=== PATIENT | male | born 1955 | race Asian ===

== ENCOUNTER 2018-02-14 02:36 | Inpatient (IN) | payer SELFPAY ==
[2018-02-14] MEDS ORDERED: Metoprolol tartrate 1 mg/ml 5mL Amp IV STA ×3 (02:45→03:19)
[2018-02-14] MEDS ORDERED: Metoprolol tartrate 1 mg/ml 5mL Amp IV ONE ×2 (02:46→03:24)
[2018-02-14] MEDS ORDERED: Lactated Ringer 1,000 ML IV ONE ×3 (02:53→05:39)
--- NOTE | 2018-02-14 03:03 | ED Physician Chart ---
ED Chief Complaint/HPI - Patient Information Date Seen:: 02/14/18 Time Seen:: 02:36 Chief Complaint:: palpitations and sob History of Present Illness:: palpitations and sob in a man with a h/o atrial fibrillation who was on atenolol in the past. Allergies:: Allergies Allergy/AdvReac Type Severity Reaction Status Date / Time UNOBTN - Unobtainable Allergy Verified 02/14/18 02:46 Vitals:: Vital Signs - 8 hr 02/14/18 02/14/18 02:36 02:49 Temp 99.2 F HR 139 124 RR 20 BP 173/119 173/119 O2 Sat % 97 Historian:: Patient, EMS, Medical Records, Other (police) Review:: Transfer documents Reviewed ED Review of Systems - Review of Systems General/Constitutional: No fever, No chills, No weight loss, No weakness, No diaphoresis, No edema, No loss of appetite, Other (alcohol on breath.) Skin: No skin lesions, No rash, No bruising Head: No headache, No light-headedness Eyes: No loss of vision, No pain, No diplopia ENT: No earache, No nasal drainage, No sore throat, No tinnitus Neck: No neck pain, No swelling, No thyromegaly, No stiffness, No mass noted Cardio Vascular: Palpitations Pulmonary: SOB GI: No nausea, No vomiting, No diarrhea, No pain, No melena, No hematochezia, No constipation, No hematemesis G/U: No dysuria, No frequency, No hematuria Musculoskeletal: No bone or joint pain, No back pain, No muscle pain Endocrine: No polyuria, No polydipsia Psychiatric: No prior psych history, No depression, No anxiety, No suicidal ideation Hematopoietic: No bruising, No lymphadenopathy Allergic/Immuno: No urticaria, No angioedema Neurological: No syncope, No focal symptoms, No weakness, No paresthesia, No headache, No seizure, No dizziness, No confusion, No vertigo ED Past Medical History - Past Medical History Obtainable: Yes Past Medical History: Other (atrial fibrillation) Family Medical History - Family Member Mother History Unknown: Yes ED Physical Exam - Physical Examination General/Constitutional: Awake Other Gen/Cons comments:: alcohol on breath. Head: Atraumatic Eyes: Lids, conjuctiva normal Skin: Nl inspection ENMT: External ears, nose nl Neck: Nontender Respiratory: Nl effort/Exclusion, Clear to Auscultation, No Wheeze/Rhonchi/Rales Other Cardio Vascular comments:: irregularly irregular GI: No tenderness/rebounding/guarding Other GI comments:: distended. Extremities: No tenderness or effusion, No edema Neuro/Psych: Alert/oriented Other Neuro/Psych comments:: smell of alcohol on breath. Misc: Normal back ED Assessment - Assessment General Assessment: EKG from 2:41:58 a.m. reveals atrial fibrillation with nonspecific ST T wave changes. Flipped t wave in III and V1. patient is intoxicated and became agitated when asked about alcohol and stated that he was not intoxicated. subsequent to this, one of the nurses started asking him how many drinks he had, I asked this nurse to stop asking him these questions since we wanted him to relax while he was being treated for rapid atrial fibrillation. while patient was being treated for rapid atrial fibrillation, one of the nurses tried to swab his nose for MRSA. I asked the nurse to hold off since this would stimulate the patient. while patient was being treated for rapid atrial fibrillation, one of the technicians tried to draw his blood. I asked her to hold off since this would stimulate the patient. Airline Attendant Dontrell brought $ 485.26 in [place] to the patient. We received it from him since the patient was being treated for rapid atrial fibrillation. Assessment/Comments:: after total of Metoprolol 10 mg IV, heart rate still elevated at 120. Cardizem brought his heart rate down to the 80's. repeat EKG from 5:28:12 a.m.: atrial fibrillation with rate of 87. Leads II, III and V1 appear to look like atrial flutter with shark tooth pattern. Flipped t wave in III, AVR, V1 to V3. Waiting for hemoccult to return on stool. Smells like melena. phone call to Dr. Charles at 5:40 a.m. and went straight to voice mail. phone calls to Dr. Charles at 6:00 a.m. and 6:30 a.m. Went straight to voice mail both times. my reading of CXR reveals NAD. paged Dr. Diaz at 7:08 a.m. No answer as of 7:30 a.m. gave sign out to Dr. Wu at 7 a.m. ED Septic Shock - . Is Septic Shock (SBP<90, OR Lactate>4 mmol\L) present?: No - <6hrs of presentation: Vital Signs: Vital Signs - 8 hr 02/14/18 02/14/18 02:36 02:49 Temp 99.2 F HR 139 124 RR 20 BP 173/119 173/119 O2 Sat % 97 ED Reassessment (Disposition) - Reassessment Reassessment Condition:: Improved - Diagnosis Diagnosis:: Rapid atrial fibrillation. Alcohol intoxication. - Patient Disposition Discharge/Transfer:: Acute Care w/in this hosp Admitted to:: Telemetry Condition at Disposition:: Stable, Improved
[2018-02-14 04:02] LABS: AMPHETAMINE URINE NEGATIVE (NEGATIVE); BARBITURATES URINE NEGATIVE (NEGATIVE); BENZODIAZEPINES QUAL URINE NEGATIVE (NEGATIVE); CANNABINOID THC NEGATIVE (NEGATIVE); COCAINE METABOLITE QUAL URINE NEGATIVE (NEGATIVE); METHADONE URINE NEGATIVE (NEGATIVE); METHAMPHETAMINES QUAL URINE NEGATIVE (NEGATIVE); OPIATES (MORPHINE) QUAL. URINE NEGATIVE (NEGATIVE); PHENCYCLIDINE (PCP) URINE NEGATIVE (NEGATIVE); TRICYCLICS (TCA) QUAL. URINE NEGATIVE (NEGATIVE)
[2018-02-14 04:06] LABS: % BASOPHILS 0.3 % (0.0-2.0); % EOSINOPHILS 0.8 % (0.0-5.0); % LYMPHOCYTES 16.1 % (20.0-50.0); % MONOCYTES 5.8 % (2.0-10.0); EOSINOPHILE ABSOLUTE 0.1 Th/cmm (0.1-0.4); HEMATOCRIT 43.6 % (41.0-60); HEMOGLOBIN 14.7 gm/dL (12-16); LYMPHOCYTE ABSOLUTE 1.3 Th/cmm (1.5-3.0); MEAN CELL VOLUME 93.7 fl (80-99); MEAN CORPUSCULAR HEMOGLOBIN 31.6 pg (26.0-30.0); MEAN CORPUSCULAR HGB CONC 33.7 pg (28.0-36.0); MEAN PLATELET VOLUME 8.4 fl; MONOCYTE ABSOLUTE 0.5 Th/cmm (0.3-1.0); NEUTROPHILE ABSOLUTE 6.3 Th/cmm (1.8-8.0); PLATELET COUNT 212 Th/cmm (150-400); RED BLOOD COUNT 4.65 Mil/cmm (4.30-5.70); RED CELL DISTRIBUTION WIDTH 12.1 % (11.5-20.0); WHITE BLOOD COUNT 8.2 Th/cmm (4.8-10.8)
[2018-02-14 04:14] LABS: INR 0.93 (0.5-1.4); PROTHROMBIN TIME (TEST) 9.7 SECONDS (9.5-11.5)
[2018-02-14 04:19] LABS: ALB/GLOB RATIO 1.4 (1.0-1.8); ALBUMIN 3.8 gm/dL (4.2-5.5); ALKALINE PHOSPHATASE 52 U/L (34-104); ANION GAP 15.5 (7.0-16.0); BILIRUBIN,TOTAL 0.2 mg/dL (0.3-1.0); BUN - UREA NITROGEN 19 mg/dL (7-25); CALCIUM SERUM 8.7 mg/dL (8.6-10.3); CARBON DIOXIDE 18.1 mEq/L (21.0-31.0); CHLORIDE 107 mEq/L (98-107); CREATININE - SERUM 0.8 mg/dL (0.7-1.3); GFR AFRICAN-AMERICAN > 60.0 ml/min (>90); GFR NON AFRICAN-AMERICAN > 60.0 ml/min; GLUCOSE 133 mg/dL (70-105); MAGNESIUM 1.8 mg/dL (1.9-2.7); PHOSPHOROUS 2.4 mg/dL (2.5-5.0); POTASSIUM SERUM 3.6 mEq/L (3.5-5.1); SGOT 58 U/L (13-39); SGPT/ALT 69 U/L (7-52); SODIUM SERUM 137 mEq/L (136-145); TOTAL PROTEIN,SERUM 6.5 gm/dL (6.0-8.3)
[2018-02-14] MEDS ORDERED: Diltiazem 5 mg/mL 5mL Vial IVP STA ×2 (04:33→09:14)
[2018-02-14] MEDS ORDERED: Diltiazem 5 mg/mL 5mL Vial IVP ONE ×2 (04:38→09:17)
[2018-02-14] MEDS ORDERED: Sodium Phos / Potassium Phos 1.25 GM PACK PO ONE (05:12)
[2018-02-14] MEDS ORDERED: Maalox 30 mL Cup PO ONE (05:17)
[2018-02-14] MEDS ORDERED: Maalox 30 mL Cup ONE (05:29)
--- NOTE | 2018-02-14 09:17 | Diagnostic Imaging Report ---
Portable chest x-ray Time: 0 423 History: Shortness of breath Allowing for portable technique the heart size is normal. No focal pulmonary parenchymal processes. No hilar or mediastinal abnormalities. Impression: No acute abnormalities.
[2018-02-14] MEDS ORDERED: Sodium Chloride 0.9% 1,000 ML IV SCH (12:00)
[2018-02-14 12:11] LABS: CHOLESTEROL 165 mg/dL (<200); HDL -HIGH DENSITY LIPOPROTEIN 44 mg/dL (23-92); TRIGLYCERIDES 132 mg/dL (<150)
[2018-02-14 12:14] LABS: BUN - UREA NITROGEN 13 mg/dL (7-25); CALCIUM SERUM 9.3 mg/dL (8.6-10.3); CARBON DIOXIDE 23.6 mEq/L (21.0-31.0); CHLORIDE 102 mEq/L (98-107); CREATININE - SERUM 0.8 mg/dL (0.7-1.3); GFR AFRICAN-AMERICAN > 60.0 ml/min (>90); GFR NON AFRICAN-AMERICAN > 60.0 ml/min; GLUCOSE 119 mg/dL (70-105); POTASSIUM SERUM 3.6 mEq/L (3.5-5.1); SODIUM SERUM 134 mEq/L (136-145)
[2018-02-14] MEDS ORDERED: Pneumococcal Vaccine 0.5 mL Vial IM ONE (12:15)
--- NOTE | 2018-02-14 12:28 | History & Physical Pre-OP ---
DATE OF SERVICE: 02/14/2018 CHIEF COMPLAINT: Palpitations. HISTORY OF PRESENT ILLNESS: This is a 62-year-old Spanish gentleman with history of atrial fib and hypertension, who was brought in to the ED secondary to palpitations. The patient was apparently drinking and was [facility] in [facility] he was taken after he was arrested for DUI. He started complaining of palpitations soon after. At the ED, his EKG was consistent with afib with a rate of 136. The patient takes atenolol, but states that despite taking this medication, his blood pressure is usually on the high side and occasionally he gets palpitations. 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 PAST MEDICAL HISTORY: As noted above. Afib for many years. essential hypertension since early adulthood. PAST SURGICAL HISTORY: Denies. FAMILY HISTORY: His father secondary to a stroke in his late 80s. SOCIAL HISTORY: He admits to daily drinking for years. He denies smoking. He denies any other substance abuse, which is IVDA. He works as a airplane engineer. ALLERGIES: ALLERGIC TO PENICILLIN. OUTPATIENT MEDICATIONS: Atenolol, unknown dosage. REVIEW OF SYSTEMS: CONSTITUTIONAL: No fever or chills. No recent weight loss. CARDIOVASCULAR: Please refer to the HPI. He denies any chest pain or angina. PULMONARY: No cough or phlegm production. GASTROINTESTINAL: No bowel habit changes. GENITOURINARY: No bladder habit changes. NEUROLOGIC: No changes in vision. No headaches. Denies any syncope. PSYCH: She does admit to anxiety and occasional depression. PHYSICAL EXAMINATION: VITAL SIGNS: Temperature 98.9, pulse 112-116, BP 150/111 with respirations of 17 and sats of 96% on room air. GENERAL: He is a well-developed, well-nourished male, currently awake, alert and oriented x 3, in no acute distress. HEAD AND NECK: Normocephalic, atraumatic. Pupils reactive to light. Extraocular movements are intact. Oropharynx moist and clear. CARDIAC: Regular rate, regular rhythm with no murmurs. LUNGS: Clear to auscultation bilaterally. ABDOMEN: Soft, supple, nontender, nondistended, normoactive bowel sounds. EXTREMITIES: Lower extremities: Has no pedal edema. NEUROLOGIC: Grossly intact and nonfocal. LABORATORY DATA: CBC was essentially within normal limits. Chemistry was within normal limits with glucose of 133, mag 1.8, AST 58, ALT 69, alkaline phosphatase of 52. Troponins are negative x 1 set. A urine tox was negative. Alcohol level was 94. DIAGNOSTICS: Please refer to the HPI. Repeat EKG shows atrial fib at a rate of 120. Chest x-ray shows no abnormalities. IMPRESSION: 1. Atrial fibrillation with rapid ventricular response. 2. History of atrial fibrillation. 3. Essential hypertension, currently controlled. 4. Chronic ETOH. 5. Mild transaminitis. 6. Chronic anxiety/depression. PLAN: The patient has been admitted to tele for further management and care. The patient has been given diltiazem at the ED and I will continue patient on atenolol 50 mg b.i.d. He will undergo cardiac testing including troponins/EKGs as well as a 2D echo. Cardiology will also be asked for. The patient is agreeable to be started on an antidepressant and I will put him on Ativan as needed for anxiety. JOB# [id number] JUWAN
[2018-02-14] MEDS ORDERED: Mag Sulfate 2gm/50mL Premix 2 GM/50 ML BAG IV ONE (15:10)
[2018-02-14] MEDS ORDERED: Enoxaparin Subq per Pharmacy MC SCH (15:30)
[2018-02-14] MEDS ORDERED: Enoxaparin 40 mg/0.4 mL 0.4mL Syr SUBQ SCH (16:00)
[2018-02-14 20:22] LABS: INR 0.94 (0.5-1.4); PROTHROMBIN TIME (TEST) 9.8 SECONDS (9.5-11.5)
[2018-02-14] MEDS ORDERED: KCL 20mEq/100mL Premix 20 MEQ/100 ML PIGGYBACK IV ONE (23:30)
--- NOTE | 2018-02-14 23:32 | Consultation ---
DATE OF CONSULTATION: 02/14/2018 HISTORY OF PRESENT ILLNESS: The patient was seen in the courtesy of Dr. Charles. This 62-year-old male was seen and examined. The patient was admitted here through Emergency Room with history of palpitations and found to be in atrial fibrillation with a fast ventricular response. The patient has history of hypertension, history of hyperlipidemia, and he also found to be intoxicated with alcohol. He says he drinks every day. On questioning him, the patient denied any history of chest pains. No history of shortness of breath, no history of PND, no history of orthopnea, no history of cough, no history of fever, no history of hemoptysis, no history of dizziness, no history of syncope, no history of seizures, no history of CVA, no history of abdominal pain, no history of nausea or vomiting, no history of hematemesis, no history of melena, no history of bleeding per rectum. No history of change in bowel habits. No history of swelling over the legs. On questioning him, he says the patient does have history of this irregular heartbeat and atrial fib for 10-12 years. He is an attorney lawyer by profession. PAST MEDICAL HISTORY: Usual childhood disease. No history of rheumatic fever. No history of scarlet fever. Other past history as mentioned above. FAMILY HISTORY: Not significant. SOCIAL HISTORY: The patient does not smoke. Chronic alcohol drinker. REVIEW OF SYSTEMS: As mentioned above. PHYSICAL EXAMINATION: VITAL SIGNS: Heart rate was 100-115, blood pressure was 167/100 and then came down to 143/104, afebrile, respirations was 18. SKIN: Normal. HEAD: Normocephalic. EYES: Conjunctivae were pink. There is no icterus in the eyes. Pupils reactive to light. NECK: There was no increased jugular venous distention, no thyromegaly, no lymphadenopathy. Carotids equal on both sides. CHEST: Bilaterally symmetrical, moved well with respiration. Respiratory movements equal on both sides. Trachea is central. There is note to percussion. Breath sound, no rales, no rhonchi. CARDIOVASCULAR SYSTEM: PMI not well localized. There is no positional thrill. No parasternal heave. S1 normal, S2 physiologic. There were no S3, no rub. ABDOMEN: Soft. No tenderness, no rigidity, no guarding, and no organomegaly. Bowel sounds normal. CENTRAL NERVOUS SYSTEM: Appears to be unremarkable. EXTREMITIES: No edema, no calf tenderness. Peripheral pulses slightly diminished. LABORATORY DATA: On reviewing the lab: WBC count was 8.2, hemoglobin 14.7, hematocrit 43.6, platelet count was 212. INR was 0.93, PTT was 27.5. Sodium was 134, potassium 3.6, chloride 102, carbon dioxide of 23.6, BUN 13, creatinine 0.8, GFR more than 60, glucose was 119, calcium 9.3. Troponin levels within normal limits 0.01 and 0.02. Triglycerides 132, cholesterol 165, LDL was elevated to 112, HDL 44, TSH 0.52, SGOT was 58, SGPT 69, magnesium was 1.8, alcohol level was 94. Drug screen urine was negative. EKG showed atrial fibrillation with fast ventricular response, normal axis. IMPRESSION: Atrial fibrillation with fast ventricular response, chronic atrial fibrillation, troponins are normal, hypertension uncontrolled, hyperlipidemia and increased LDL, hypomagnesemia. PLAN: Plan is to continue cardiac monitoring. The Cardizem is already ordered p.r.n. to control the heart rate. We will also give Lanoxin 0.25 mg IV. The patient is on atenolol 50 mg b.i.d. We will ask the pharmacy to give Lovenox for AFib. Since he is a chronic alcoholic, we have to watch for DTs. We will start him on some IV fluids with MVI. Also given thiamine 100 mg 3 times a day. Also put him on Librium 25 mg q. 6 hours and also add Lipitor 20 mg p.o. daily. Further recommendation will be made depending on the rest of the tests available. Also get echocardiogram to evaluate left ventricular function and valvular structure. Repeat EKG and BMP in a.m. JOB# [id number]
[2018-02-15] MEDS ORDERED: Multivitamin Inj 10 mL Vial IV ONE (00:37)
[2018-02-15] MEDS: D5 IV SCH ×2 (00:44→12:50)
[2018-02-15] MEDS: [UNRECOGNIZED DRUG - OTHER] IV SCH ×2 (00:44→12:50)
[2018-02-15] MEDS: MULTIVITAMIN IV SCH ×2 (00:44→12:50)
[2018-02-15 05:41] LABS: % BASOPHILS 0.4 % (0.0-2.0); % EOSINOPHILS 1.1 % (0.0-5.0); % LYMPHOCYTES 12.5 % (20.0-50.0); EOSINOPHILE ABSOLUTE 0.1 Th/cmm (0.1-0.4); HEMATOCRIT 45.2 % (41.0-60); HEMOGLOBIN 15.4 gm/dL (12-16); LYMPHOCYTE ABSOLUTE 1.4 Th/cmm (1.5-3.0); MEAN CELL VOLUME 93.8 fl (80-99); MEAN CORPUSCULAR HEMOGLOBIN 31.9 pg (26.0-30.0); MONOCYTE ABSOLUTE 0.8 Th/cmm (0.3-1.0); NEUTROPHILE ABSOLUTE 9.2 Th/cmm (1.8-8.0); PLATELET COUNT 225 Th/cmm (150-400); RED BLOOD COUNT 4.82 Mil/cmm (4.30-5.70); RED CELL DISTRIBUTION WIDTH 11.9 % (11.5-20.0); WHITE BLOOD COUNT 11.5 Th/cmm (4.8-10.8)
[2018-02-15 06:25] LABS: ALB/GLOB RATIO 1.4 (1.0-1.8); ALBUMIN 3.9 gm/dL (4.2-5.5); ALKALINE PHOSPHATASE 50 U/L (34-104); ANION GAP 11.2 (7.0-16.0); BILIRUBIN,TOTAL 1.1 mg/dL (0.3-1.0); BUN - UREA NITROGEN 11 mg/dL (7-25); CARBON DIOXIDE 20.5 mEq/L (21.0-31.0); CHLORIDE 102 mEq/L (98-107); CREATININE - SERUM 0.7 mg/dL (0.7-1.3); GFR AFRICAN-AMERICAN > 60.0 ml/min (>90); GFR NON AFRICAN-AMERICAN > 60.0 ml/min; GLUCOSE 145 mg/dL (70-105); MAGNESIUM 2.2 mg/dL (1.9-2.7); POTASSIUM SERUM 3.7 mEq/L (3.5-5.1); SGOT 28 U/L (13-39); SGPT/ALT 57 U/L (7-52); SODIUM SERUM 130 mEq/L (136-145); TOTAL PROTEIN,SERUM 6.6 gm/dL (6.0-8.3)
[2018-02-15] MEDS ORDERED: Atorvastatin Calcium 10 MG TAB PO SCH (09:00)
[2018-02-15] MEDS ORDERED: Enoxaparin 80 mg/0.8 mL 0.8mL Syr SUBQ SCH (09:00)
[2018-02-15] MEDS ORDERED: Pantoprazole 40 mg EC Tab PO SCH (09:00)
[2018-02-15] MEDS ORDERED: Enoxaparin 100 mg/mL 1mL Syr SUBQ SCH (09:00)
[2018-02-15] MEDS ORDERED: Aspirin 81mg Chewable Tab PO SCH (09:00)
--- NOTE | 2018-02-15 16:57 | Discharge Summary ---
DATE OF DISCHARGE: 02/15/2018 DATE OF DISCHARGE: 02/15/2018. ADMITTING DIAGNOSES: 1. Palpitations. 2. Atrial fibrillation with rapid ventricular response. 3. Hypertension, out of control. SECONDARY DIAGNOSES: 1. Chronic ETOH. 3. Chronic anxiety. 4. Hypercholesterolemia. DISCHARGE DIAGNOSES: 1. Palpitations -- resolved. 2. Atrial fibrillation, rate controlled. 3. Essential hypertension-improved. 4. Mild hyponatremia. CONSULTANTS: Dr. Fajardo, Cardiology. MAJOR PROCEDURES: 2D echo done on 02/14/2018 shows consistency with atrial fib, EF of 56%, (official results pending). BRIEF HOSPITAL COURSE: A 62-year-old male with a longstanding history of atrial fib and hypertension, who was brought in to the ER after he was arrested for DUI. Apparently he started complaining of palpitations, which he occasionally gets and he was transferred to the ER where he was noted to have a rate of 136 consistent with AFib with RVR. He was admitted to telemetry [facility]goza where he was placed on IV fluids and cardiac meds including atenolol and digoxin. He underwent basic cardiac workup including a repeat EKG showing improvement (atrial fibrillation with a rate of 109). He was evaluated by Cardiology who also recommended Lovenox while in patient. The patient reported improvement of the palpitations by hospital day #1. He reported some mild anxiety, but no signs or symptoms of withdrawals. He was also given Librium, thiamine and folic acid as well as Ativan p.r.n. He also voiced concern about his drinking as he drinks on a daily basis 2ry to chronic anxiety. I recommended him to follow up with AA and he is agreeable to start anxiolytic medication (Paxil) for further treatment of his chronic anxiety. DISCHARGE MEDICATIONS: Atenolol 50 b.i.d., Digoxin 0.25mg every day, atorvastatin 20 every day, aspirin 81 every day, Xarelto 20 every day, Paxil 20 every day, thiamine 100 mg every day, and folic acid 1 mg every day. DISPOSITION: The patient was discharged home to self-care. I instructed him to follow up with his primary care doctor within the next 2-3 days and with cardiology within 1 week (to be referred by PCP). JOB# [id number] [facility] HOSPITALGalindo
--- NOTE | 2018-02-16 13:32 | Cardiology ---
02/14/[address] Charles. M-MODE ECHOCARDIOGRAM: Mitral valve, anterior leaflet of mitral valve shows normal excursion, EF velocity. Posterior leaflet of the mitral valve shows normal excursion. Left ventricular posterior wall shows increased thickness, normal excursion. Interventricular septum shows increased thickness, normal excursion, hypertrophy of the left ventricle, ejection fraction 56%. Left atrium enlarged 4.3 cm. Aortic root shows normal dimension, normal excursion of aortic leaflets. CONCLUSION: Hypertrophy of the left ventricle, left atrial enlargement, ejection fraction 56%. 2D ECHO: Long axis view showed normal sized left ventricle with hypertrophy of the left ventricle. Left atrium enlarged. Aortic root shows normal dimension, normal excursion of aortic leaflets. Short axis view of mitral valve normal. Short axis view of aortic valve normal. Apical four chamber view showed normal sized left ventricle with hypertrophy of the left ventricle. Left atrium enlarged. Right ventricular cavity is normal. Right atrium enlarged. CONCLUSION: Left atrial enlargement, right atrial enlargement. Hypertrophy of the left ventricle, ejection fraction 56%. Doppler study shows moderate mitral regurgitation, moderate tricuspid regurgitation, mild pulmonary regurgitation, right ventricular systolic pressure 48 mmHg with mild pulmonary hypertension. JOB# [id number]
== END 2018-02-15 16:30 | disposition home or self-care (01) | DRG 309 ==
LOC: ER 02:36 → TELE 10:06
PROVIDERS: ADMIT Internal Medicine; ATTEND Internal Medicine
DX: I48.91 Unspecified atrial fibrillation (principal); E87.1 Hypo-osmolality and hyponatremia; F10.129 Alcohol abuse with intoxication, unspecified; F41.9 Anxiety disorder, unspecified; I10 Essential (primary) hypertension; F32.9 Major depressive disorder, single episode, unspecified; R74.0 Nonspecific elevation of levels of transaminase and lactic acid dehydrogenase [LDH]; E78.5 Hyperlipidemia, unspecified; E83.42 Hypomagnesemia; E78.00 Pure hypercholesterolemia, unspecified; Z88.0 Allergy status to penicillin
CPT/HCPCS: 36415-UA; 71045-TC; 80048-TC; 80053-TC; 80061-TC; 80307; 80320-TC; 82270-TC; 83735-TC; 84100-TC; 84443-TC; 84484-TC; 85025-TC; 85610-TC; 90732; 90779; 90799; 93005; 96374; 96375; 96376; J1160; J1650; J3475; J3480; X6598; Z7610